=== PATIENT | female | born 1950 | race African-American/Black ===

== ENCOUNTER 2017-05-02 09:20 | Day surgery (SDC) | payer OTHER ==
[2017-05-02 10:15] VITALS: BMI 36.0
[2017-05-02] MEDS ORDERED: LIDOCAINE HCL/PF 2% SDV 5ML VIAL ONE (10:29)
[2017-05-02] MEDS ORDERED: PROPOFOL 20 ML ONE (10:29)
[2017-05-02 11:11] VITALS: TEMP 97.8
[2017-05-02 12:08] VITALS: BP 137/51; PULSE 58
--- NOTE | 2017-05-03 14:46 | PATH ---
Surgical Pathology Report Patient Name: JORDAN SIERRA [facility]. Rec. #: [id number] /Age/Gender: 1950 (Age: 67) / F Account: [id number] Location: U-ENDOSCOPY Taken: 05/02/2017 Received: 05/02/2017 Reported: 05/03/2017 Physicians: Neil Zamarripa M.D. Specimen(s) Received BX COLON SIGMOID Clinical History Fecal incontinence Rule out collagenous colitis Final Diagnosis COLON, SIGMOID, BIOPSY: COLONIC MUCOSA WITH NO PATHOLOGIC CHANGES. NO ACTIVE COLITIS, ARCHITECTURAL DISTORTION, GRANULOMATA, OR DYSPLASIA IDENTIFIED. NO MICROSCOPIC COLITIS IDENTIFIED (NO LYMPHOCYTIC OR COLLAGENOUS COLITIS IDENTIFIED). Electronically Signed Sandro Del Cid M.D. Gross Description Received in formalin, labeled "biopsy sigmoid colon" is a pimentel, irregular portion of soft tissue measuring 0.4 cm. in greatest dimension. The specimen is submitted in toto in one cassette. 05/02/201705/02/2017
== END 2017-05-02 12:08 | disposition home or self-care (01) ==
LOC: JASU-ENDO 09:20
PROVIDERS: ATTEND Internal Medicine Gastroenterology
PROC: 0DBN8ZX Excision of Sigmoid Colon, Via Natural or Artificial Opening Endoscopic, Diagnostic (ICD-10-PCS; principal; 2017-05-02 11:00)
DX: R15.9 Full incontinence of feces (principal); E13.40 Other specified diabetes mellitus with diabetic neuropathy, unspecified; Z79.4 Long term (current) use of insulin
CPT/HCPCS: 88305-TC